=== PATIENT | female | born 1950 | race Native Hawaiian/Other Pacific Islander ===

== ENCOUNTER 2018-04-24 11:34 | Emergency (ER) | payer MEDICARE ==
[2018-04-24 11:51] VITALS: BP 155/70
[2018-04-24 13:08] LABS: Basophils # (Auto) 0.1 K/mm3 (0.0-0.1); Eosinophils # (Auto) 0.2 K/mm3 (0.0-0.4); Eosinophils % (Auto) 2.9 % (0.0-4.3); Hematocrit 37.4 % (30.3-42.9); Hemoglobin 12.5 gm/dl (10.1-14.3); Lymphocytes # (Auto) 1.9 K/mm3 (1.2-5.4); Lymphocytes % (Auto) 33.2 % (13.4-35.0); Mean Corpuscular HGB Conc 33 % (30-34); Mean Corpuscular Hemoglobin 28 pg (28-32); Mean Corpuscular Volume 84 fl (79-97); Monocytes # (Auto) 0.5 K/mm3 (0.0-0.8); Monocytes % (Auto) 8.6 % (0.0-7.3); Platelet Count 297 K/mm3 (140-440); Red Blood Count 4.46 M/mm3 (3.65-5.03); Red Cell Distribution Width 13.4 % (13.2-15.2)
[2018-04-24 13:22] LABS: Alanine Aminotransferase 10 units/L (7-56); Albumin 4.1 g/dL (3.9-5); BUN/Creatinine Ratio 9; Blood Urea Nitrogen 6 mg/dL (7-17); Calcium 9.8 mg/dL (8.4-10.2); Hemolysis Index 5
[2018-04-24 13:30] LABS: Bilirubin,Urine NEG (Negative); Blood,Urine NEG (Negative); Color,Urine Yellow (Yellow); Mucus,Urine FEW /HPF; Protein,Urine <15 mg/dL mg/dL (Negative); Urobilinogen,Urine < 2.0 mg/dL (<2.0)
--- NOTE | 2018-04-24 13:32 | Emergency Department Report ---
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 She states that she recently had definite family of her . They said the patient has been under a lot of stress. Patient denies any shortness of breath or chest pain. They also report that patient is having forgetfulness and possible signs and symptoms of memory loss. Left breast pain is 4-10 on and off. Patient denies any pain at present. Denies any nausea or vomiting. Denies any dizziness. Denies any history of heart disease. Patient does not have any medical problems. Pain is achy when it's there. No medication taken. - ROS Review of Systems: Positive left breast pain and forgetfulness. Negative chest pain, negative shortness of breath. Negative cough, negative fever or chills, negative abdominal or back pain. Negative urinary burning, frequency or urgency. - Exam Vital Signs: Vital Signs 04/24/18 11:46 Temperature 98.3 F Pulse Rate 66 Respiratory 18 Rate Blood Pressure 155/70 O2 Sat by Pulse 100 Oximetry Physical Exam: Gen.: This is a 67-year-old female well-nourished well-developed in no acute distress. MSE screening note: Focused history and physical exam performed. Due to findings the following was ordered: I was unable to do physical exam because daughter walked out of her room with her family and said that she is to go to work and she'll come back later. I tried to discuss with her that her laboratory report is back like to do a physical exam and complete exam. They said they cannot wait and left emergency room AGAINST MEDICAL ADVICE. Patient discussed with doctor:: STEVE FOURNIER ED Medical Decision Making - Lab Data Result diagrams: 04/24/18 12:54 04/24/18 12:54 Lab Results 04/24/18 04/24/18 04/24/18 Range/Units 12:54 12:54 13:06 WBC 5.8 (4.5-11.0) K/mm3 RBC 4.46 (3.65-5.03) M/mm3 Hgb 12.5 (10.1-14.3) gm/dl Hct 37.4 (30.3-42.9) % MCV 84 (79-97) fl MCH 28 (28-32) pg MCHC 33 (30-34) % RDW 13.4 (13.2-15.2) % Plt Count 297 (140-440) K/mm3 Lymph % (Auto) 33.2 (13.4-35.0) % [place] % (Auto) 8.6 H (0.0-7.3) % Eos % (Auto) 2.9 (0.0-4.3) % Baso % (Auto) 1.0 (0.0-1.8) % Lymph # 1.9 (1.2-5.4) K/mm3 [place] # 0.5 (0.0-0.8) K/mm3 Eos # 0.2 (0.0-0.4) K/mm3 Baso # 0.1 (0.0-0.1) K/mm3 Seg Neutrophils % 54.3 (40.0-70.0) % Seg Neutrophils # 3.1 (1.8-7.7) K/mm3 Sodium 141 (137-145) mmol/L Potassium 3.8 (3.6-5.0) mmol/L Chloride 100.3 (98-107) mmol/L Carbon Dioxide 29 (22-30) mmol/L Anion Gap 16 mmol/L BUN 6 L (7-17) mg/dL Creatinine 0.7 (0.7-1.2) mg/dL Estimated GFR > 60 ml/min BUN/Creatinine Ratio 9 % Glucose 85 (65-100) mg/dL Calcium 9.8 (8.4-10.2) mg/dL Total Bilirubin 0.40 (0.1-1.2) mg/dL AST 18 (5-40) units/L ALT 10 (7-56) units/L Alkaline Phosphatase 66 (35-129) units/L Total Protein 6.9 (6.3-8.2) g/dL Albumin 4.1 (3.9-5) g/dL Albumin/Globulin Ratio 1.5 % Urine Color Yellow (Yellow) Urine Turbidity Clear (Clear) Urine pH 6.0 (5.0-7.0) Ur Specific [place] 1.008 (1.003-1.030) Urine Protein <15 mg/dl (Negative) mg/dL Urine Glucose (UA) Neg (Negative) mg/dL Urine Ketones Neg (Negative) mg/dL Urine Blood Neg (Negative) Urine Nitrite Neg (Negative) Urine Bilirubin Neg (Negative) Urine Urobilinogen < 2.0 (<2.0) mg/dL Ur Leukocyte Esterase Lg (Negative) Urine WBC (Auto) 19.0 H (0.0-6.0) /HPF Urine RBC (Auto) 3.0 (0.0-6.0) /HPF U Epithel Cells (Auto) < 1.0 (0-13.0) /HPF Urine Mucus Few /HPF - EKG Data -: EKG Interpreted by Me (Dr. Steve Fournier) EKG shows normal: sinus rhythm Rate: normal (at 61 bpm) - EKG Data Interpretation: no acute changes, normal EKG - Medical Decision Making ED course Patient left before I could give them laboratory results and also EKG results. She has positive UTI and I attempted to call phone number on chart in a male answer the phone and said it was around number. Daughter had said that she'll return at another time. They left AGAINST MEDICAL ADVICE. - Differential Diagnosis ACS, anxiety due to stress, or throat area ED Disposition for MSE Clinical Impression: UTI (urinary tract infection) Qualifiers: Urinary tract infection type: acute cystitis Hematuria presence: without hematuria Qualified Code(s): N30.00 - Acute cystitis without hematuria Disposition: LEFT AGAINST MED ADVICE Is pt being admited?: No Does the pt Need Aspirin: No Condition: Stable Referrals: PRIMARY CARE, [Primary Care Provider] - 3-5 Days
== END 2018-04-24 15:26 | disposition left against medical advice (07) ==
LOC: ED 11:34
DX: N30.00 Acute cystitis without hematuria (principal); Z53.21 Procedure and treatment not carried out due to patient leaving prior to being seen by health care provider
CPT/HCPCS: 36415; 80053; 81001; 85025; 93005; 93010